=== PATIENT | male | born 1940 | race Caucasian/White ===

== ENCOUNTER → 2021-03-01 | Outpatient (CLI) | payer OTHER ==
[2021-03-01 10:43] LABS: African American GFR (CKD) >90 (>60 ml/min/1.73 sqM); Blood Urea Nitrogen 13 mg/dL (9-20); Non-African American GFR(CKD) >90 (>60 ml/min/1.73 sqM)
--- NOTE | 2021-03-01 13:19 | CT ---
EXAMINATION TYPE: CT ChestAbdPelvis w con DATE OF EXAM: 03/01/2021 COMPARISON: None HISTORY: [age]-year-old male R63.4 Abnormal weight loss TECHNIQUE: Contiguous axial scanning of the chest, abdomen, and pelvis performed with IV Contrast, pa tient injected with 100 mL of Isovue 300. Delayed images through the kidneys were obtained. Coronal/s agittal reconstructions performed. CT DLP: 575.9 mGycm Automated exposure control for dose reduction was used. FINDINGS: CHEST: Left anterior chest wall ICD generator right atrial and right ventricular leads. 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 Injected contrast enters the central venous circulation via the azygos vein. Heart normal size without pericardial effusion. Scattered LAD and circumflex coronary artery calcific ations are present. Slight ectasia ascending aorta at 3.6 cm. Mild atherosclerotic calcifications with conventional arch vessel branching anatomy. No thoracic lymphadenopathy by CT size criteria. Mild diffuse bronchial wall thickening. 9 mm left upper lobe pulmonary nodule, axial image 24. This m ay has some fat density within raising possibility of a benign lesion such as a hamartoma. Mild centr ilobular emphysema. Some interstitial thickening/reticulations in the lower lung suggesting mild fibr osis. No consolidation or pleural effusion. ABDOMEN: Scattered hypodense hepatic lesions, largest measuring 5.0 cm suggestive of cysts. No biliary ductal dilatation. Portal venous system is patent. Gallbladder, right adrenal gland, right kidney, spleen, and pancreas show no gross abnormality. Extra renal pelvis left kidney. There is some mural-based thickening along the gastric fundus, axial image 53. Slight thickening of the left adrenal gland without discrete nodularity. Moderate atherosclerotic calcifications infrarenal abdominal aorta and iliac arteries. Mild fusiform ectasia infrarenal abdominal aorta at 2.6 cm. No dilated small bowel, free fluid, or free air. No mesenteric or retroperitoneal lymphadenopathy. Oral contrast progressed to the junction of the descending and sigmoid colon. Mild overall stool marija en. No pericolonic inflammatory change. PELVIS: Prostate gland measures 4.8 cm wide. There is a moderate-sized fat-containing left indirect hernia me asuring 9.5 cm long and 4.3 x 2.4 cm in transverse planes. Multiple vertebral wall thickening of the bladder but with slight eccentric thickening left anterior bladder fundus, axial image 109. No abnorm al fluid collection in the pelvis or pelvic lymphadenopathy. BONES: Moderate degenerative change of the hips. 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 Moderate to advanced degenerative disc disease L5-S1. No osseous destructive process seen. IMPRESSION: 1. MURAL THICKENING ALONG THE GASTRIC FUNDUS COULD BE DUE TO NONDISTENTION. CORRELATE WITH PATIENT'S SYMPTOMS TO DETERMINE THE NEED FOR DIRECT VISUALIZATION TO EXCLUDE NEOPLASM. 2. SLIGHT ECCENTRIC WALL THICKENING OF THE LEFT ANTERIOR FUNDUS OF THE BLADDER. CORRELATE WITH URINA LYSIS, URINE CYTOLOGY, AND DIRECT VISUALIZATION CLINICALLY INDICATED TO EXCLUDE A BROAD-BASED UROT HELIAL LESION. FINDINGS MAY REFLECT SLIGHTLY ASYMMETRIC CHRONIC BLADDER WALL HYPERTROPHY. 3. COPD WITH MILD EMPHYSEMA. A 9 MM LEFT UPPER LOBE PULMONARY NODULE MAY CONTAIN SOME FAT SUGGESTING A BENIGN LESION SUCH A HAMARTOMA. 3-6 MONTH FOLLOW-UP CT RECOMMENDED TO REASSESS. 4. INDWELLING CARDIAC LEADS BUT WITH LEFT SUBCLAVIAN VEIN STENOSIS/OCCLUSION NOTED AFTER LEFT ARM IV CONTRAST INJECTION. THERE ARE PROMINENT LEFT CHEST WALL COLLATERAL VESSELS AND IV CONTRAST ENTERS THE CENTRAL CIRCULATION VIA COLLATERAL FLOW FROM THE AZYGOS VEIN.
== END | disposition home or self-care (01) ==
LOC: RADCTMAIN 09:39
PROVIDERS: ATTEND Nurse Practitioner Acute Care
DX: J43.9 Emphysema, unspecified (principal); R91.1 Solitary pulmonary nodule; K31.89 Other diseases of stomach and duodenum; N32.89 Other specified disorders of bladder
CPT/HCPCS: 82565; 84520; 71260; 74177; 36415; Q9967

== ENCOUNTER → 2022-05-22 | Outpatient (CLI) | payer MEDICARE | END | disposition home or self-care (01) | LOC: LABPAT 09:32 | PROVIDERS: ATTEND Surgery | DX: Z53.9 Procedure and treatment not carried out, unspecified reason (principal) ==

== ENCOUNTER 2022-05-31 09:37 | Day surgery (SDC) | payer MEDICARE ==
[2022-05-22 11:27] LABS: Basophils % (A) 1 %; Eosinophils # (A) 0.1 k/uL (0-0.7); Eosinophils % (A) 2 %; HCT 48.3 % (39.0-53.0); HGB 15.7 gm/dL (13.0-17.5); Lymphocytes # (A) 1.4 k/uL (1.0-4.8); Lymphocytes % (A) 30 %; MCH 31.3 pg (25.0-35.0); MCHC 32.6 g/dL (31.0-37.0); MCV 96.1 fL (80.0-100.0); Mean Platelet Volume 8.5; Monocytes # (A) 0.4 k/uL (0-1.0); Monocytes % (A) 8 %; Neutrophils # (A) 2.7 k/uL (1.3-7.7); Neutrophils % (A) 56 %; Platelet Count 133 k/uL (150-450); RBC 5.03 m/uL (4.30-5.90); RDW 13.5 % (11.5-15.5); WBC 4.8 k/uL (3.8-10.6)
--- NOTE | 2022-05-31 07:42 | P.GSHP ---
History of Present Illness H&P Date: 05/31/22 Chief Complaint: Left inguinal hernia 82-year-old male seen in the office in March. Patient complains of a bulge left groin. Present for the last year. Mild pain. Pain is aggravated by constipation. History of previous laparoscopic right inguinal hernia repair in 2011. States he had his left inguinal hernia repaired at the age of 4. Past Medical History Past Medical History: Atrial Fibrillation, Atrial Flutter, Myocardial Infarction (RI), Syncope Additional Past Medical History / Comment(s): mi more than 30 years ago sycopal episodes with a-fib/flutter in past " no problems now" Last Myocardial Infarction Date:: 30 plus years ago History of Any Multi-Drug Resistant Organisms: None Reported Past Surgical History: Hernia Repair, Pacemaker Additional Past Surgical History / Comment(s): hernia repair with mesh "long time ago" colonoscopy,dental extractions Past Anesthesia/Blood Transfusion Reactions: No Reported Reaction Type of Cardiac Device: Unknown Device Placement Date:: placed january 2020 [employer] Smoking Status: Former smoker Medications and Allergies Home Medications Medication Instructions Recorded Confirmed Type Aspirin [Adult Low Dose Aspirin EC] 81 mg PO DAILY 05/24/22 05/24/22 History Atorvastatin Calcium 40 mg PO HS 05/24/22 05/24/22 History Ergocalciferol [Vitamin D2 (1250 1 tab PO DAILY 05/24/22 05/24/22 History Mcg = [id number] Iu)] carvediloL [Coreg] 6.25 mg PO BID 05/24/22 05/24/22 History Allergies Allergy/AdvReac Type Severity Reaction Status Date / Time sacubitril AdvReac Intermediate Itching Verified 05/24/22 13:51 valsartan AdvReac Intermediate Itching Verified 05/24/22 13:51 ketaconazole AdvReac Intermediate Itching Uncoded 05/24/22 13:51 Surgical - Exam Physical exam: General: Well-developed, well-nourished HEENT: Normocephalic, sclerae nonicteric Abdomen: Nontender, nondistended, small reducible left inguinal hernia, prior scars noted, no palpable hernia on right Extremities: No edema Neuro: Alert and oriented Results - Labs 05/22/22 10:06 Assessment and Plan (1) Left inguinal hernia Narrative/Plan: 82-year-old male with left inguinal hernia. We'll proceed with laparoscopic da Jonathan assisted repair recurrent left inguinal hernia with mesh, possible open, possible bilateral. Cardiac clearance was obtained on this patient. Risks of bleeding, infection, recurrence, bladder and bowel injury, numbness, nerve injury, conversion to an open procedure were discussed with the patient. The patient understands and wishes to proceed. Status: Acute Code(s): K40.90 - UNIL INGUINAL HERNIA, W/O OBST OR GANGR, NOT SPCF RECUR [facility] Code(s): 185967791
[~2022-05-31 09:37] MED LIST: ACETAMINOPHEN TAB 500 MG TAB PO PRN; DEXAMETHASONE SOD PHOSPHATE 4 MG/ML 1 ML VIAL IV ONE; HEPARIN SODIUM,PORCINE/PF 5,000 UNIT/0.5 ML SYRINGE SQ PRN; HYDROmorphone 0.5 MG/0.5 ML SYRINGE IVP PRN; LACTATED RINGERS 1,000 ML IV SCH; LIDOCAINE 1% (10MG/ML) FOR IV START INTRADERMA PRN; ONDANSETRON 4 MG/2 ML VIAL IVP ONE
[2022-05-31] MEDS ORDERED: TAMSULOSIN 0.4 MG CAP.ER.24H PO ONE (10:54)
[2022-05-31 11:13] LABS: Potassium 4.4 mmol/L (3.5-5.1)
[2022-05-31] MEDS ORDERED: PHENYLEPHRINE-0.9% NACL SYG 1,000 MCG/10 ML SYRINGE ONE (11:14)
[2022-05-31] MEDS ORDERED: ROCURONIUM 10 MG/ML (5 ML VIAL) IV ONE (11:14)
[2022-05-31] MEDS ORDERED: PROPOFOL 10 MG/ML 20 ML VIAL IV ONE (11:14)
[2022-05-31] MEDS ORDERED: GLYCOPYRROLATE 0.2 MG/ML 2 ML VIAL ONE (11:14)
[2022-05-31] MEDS ORDERED: NEOSTIGMINE 1 MG/ML 10 ML VIAL ONE (11:14)
[2022-05-31] MEDS ORDERED: MIDAZOLAM 2 MG/2 ML VIAL ONE (11:14)
[2022-05-31] MEDS ORDERED: fentaNYL (PF) 50 MCG/ML 2 ML AMP ONE (11:14)
[2022-05-31] MEDS ORDERED: BUPIVACAINE (PF) 0.5% 30 ML VIAL SQ ONE ×2 (11:35→12:35)
--- NOTE | 2022-05-31 13:09 | P.OP ---
Date of Procedure: 05/31/22 Procedure(s) Performed: PREOPERATIVE DIAGNOSIS: Recurrent left inguinal hernia POSTOPERATIVE DIAGNOSIS: Same PROCEDURE: Laparoscopic da Jonathan assisted repair recurrent left inguinal hernia with mesh SURGEON: Dr. Doran ANESTHESIA: General OPERATIVE PROCEDURE DETAILS: Patient was placed in the operating table in the supine position. The patient was placed under general anesthesia. The abdomen was prepped and draped in usual sterile fashion. A small curvilinear supraumbilical incision was made. The fascia was retracted anteriorly with [place] forceps. The Veress needle was inserted. The saline drop test was normal. Insufflation took place to 15 mmHg. An 8 mm trocar was placed into the peritoneal cavity. 2 additional 8 mm trochars were placed in the right upper quadrant and left upper quadrant under visualization. The robotic arms were then brought in and docked into place. The fenestrated bipolar was used in the left arm and the laparoscopic yvette was utilized in the right arm. A 30 8 mm scope was used in the up position. The peritoneal cavity was inspected. The patient had no evidence of recurrent hernia on the right. On the left-hand side the patient had a large indirect and also a small to moderate sized direct inguinal hernia. The peritoneum was incised in a horizontal fashion cephalad to the internal inguinal ring. Following that careful dissection of the preperitoneal space took place. This took place using both electrocautery, sharp dissection but primarily blunt dissection. Visualization of the pubic tubercle and Yang's ligament took place medially. Full dissection took place laterally as well. The hernia sac was fully dissected. Once we had adequate space the extra-large Bard 3-D mid mesh was advanced into the preperitoneal space and flattened out appropriately to cover all potential hernia sites. The mesh was sutured medially using a vertical running 20 absorbable V lock suture. The peritoneal defect was then closed using a absorbable 2-0 VLok suture. The hernia sac was incorporated into the peritoneal closure to help prevent future recurrence. The pneumoperitoneum was then evacuated. The skin of all 3 sites was closed using a 4-0 Monocryl stitch. Skin glue was then applied. HERNIA CHARACTERISTICS: TYPE OF MESH USED: Bard 3-D mid XL LOCATION OF MESH: Preperitoneal FIXATION: Absorbable 20V lock PREOPERATIVE DISCUSSION ON SMOKING CESSASTION: Yes PREOPERATIVE DISCUSSION ON MORBID OBESITY: Yes PREOPERATIVE DISCUSSION ON APPROPRIATE USE OF NARCOTIC USE: Yes PREOPERATIVE EDUCATION: Multi Modal, Smoking Cessation and Weight Loss with BMI over 35. DISPOSITION: Stable to recovery room
[2022-05-31 13:12] VITALS: TEMP 98
[2022-05-31] MEDS ORDERED: ACETAMINOPHEN TAB 325 MG TAB PO SCH (13:15)
[2022-05-31 14:47] VITALS: RESP 20
[2022-05-31] MEDS ORDERED: LACTATED RINGERS 1,000 ML IV ONE (15:24)
[2022-05-31 15:54] VITALS: BP 125/70; PULSE 66
[2022-05-31] MEDS ORDERED: IBUPROFEN 600 MG TAB PO SCH (16:15)
== END 2022-05-31 16:30 | disposition home or self-care (01) ==
LOC: OR 09:37
PROVIDERS: ATTEND Surgery
DX: K40.91 Unilateral inguinal hernia, without obstruction or gangrene, recurrent (principal); I48.91 Unspecified atrial fibrillation; I25.2 Old myocardial infarction; I25.10 Atherosclerotic heart disease of native coronary artery without angina pectoris; I10 Essential (primary) hypertension; E78.5 Hyperlipidemia, unspecified; Z87.891 Personal history of nicotine dependence; Z79.82 Long term (current) use of aspirin; Z79.899 Other long term (current) drug therapy; Z88.8 Allergy status to other drugs, medicaments and biological substances
CPT/HCPCS: 80051; 49651; C1781; J2250; J1100; J2710; J0690; J2405; J3010; J2370; J2704; J1644; 85025; 86850; 86900; 86901; 93005